=== PATIENT | female | born 1990 | race African-American/Black ===

== ENCOUNTER 2024-10-12 10:15 | Emergency (ER) | payer OTHER ==
[~2024-10-12] VITALS: Ht 154.9 cm; Wt 112.5 kg
[2024-10-12 10:32] VITALS: BP 129/82; TEMP 36.8; O2SAT 100
[2024-10-12 11:06] VITALS: PULSE 100; RESP 18; O2SAT 100
[2024-10-12 12:10] LABS: BASOPHILS % 0.7 % (0.0-2.0); DIFFERENTIAL COMMENT 0; EOSINOPHILS % 1.9 % (0.0-5.0); HEMATOCRIT. 33.1 % (36.0-48.0); HEMOGLOBIN. 10.3 g/dL (12.0-16.0); LYMPHOCYTES % 17.4 % (20.0-50.0); MEAN CORPUSCULAR HGB CONC 31.1 g/dL (31.0-37.0); MONOCYTES % 7.3 % (2.0-8.0); NEUTROPHILS % 72.7 % (40.0-76.0); PLATELET 517 x1000/uL (130-400); RED BLOOD CELL COUNT 4.66 mill/uL (4.2-5.4); RED CELL DISTRIBUTION WIDTH 19.6 % (11.6-14.6); WHITE BLOOD COUNT 8.9 x1000/uL (4.5-11.0)
[2024-10-12 12:21] LABS: CHLORIDE 107 mEq/L (98-107); POTASSIUM 3.9 mEq/L (3.5-5.1); SODIUM 138 mEq/L (136-145)
[2024-10-12 12:22] LABS: CALCIUM 9.4 mg/dL (8.7-10.4); CARBON DIOXIDE 24 mEq/L (21-32)
[2024-10-12 12:27] LABS: CREATININE 0.7 mg/dL (0.6-1.0); GLUCOSE 88 mg/dL (70-105); UREA NITROGEN BLOOD 6 mg/dL (9-23)
[2024-10-12] MEDS: FAMOTIDINE 20MG TABLET PO ONE (13:00)
[2024-10-12 13:37] LABS: B-HCG QUANTITATIVE 13359 mIU/mL (<6)
== END 2024-10-12 14:09 | disposition home or self-care (01) ==
LOC: ER 10:15
DX: O46.91 Antepartum hemorrhage, unspecified, first trimester (principal); O26.891 Other specified pregnancy related conditions, first trimester; K21.9 Gastro-esophageal reflux disease without esophagitis; O99.611 Diseases of the digestive system complicating pregnancy, first trimester; Z90.89 Acquired absence of other organs; Z3A.01 Less than 8 weeks gestation of pregnancy
CPT/HCPCS: 36415; 76801; 80048; 84702; 85025; 86850; 86900; 99284

== ENCOUNTER 2024-10-16 11:26 | Emergency (ER) | payer OTHER ==
[~2024-10-16] VITALS: Ht 154.9 cm; Wt 113.0 kg
[2024-10-16 11:33] VITALS: BP 124/85; PULSE 83; RESP 18; O2SAT 100
[2024-10-16 12:08] LABS: BASOPHILS % 0.7 % (0.0-2.0); DIFFERENTIAL COMMENT 0; EOSINOPHILS % 1.9 % (0.0-5.0); HEMATOCRIT. 32.3 % (36.0-48.0); HEMOGLOBIN. 10.1 g/dL (12.0-16.0); LYMPHOCYTES % 16.2 % (20.0-50.0); MEAN CORPUSCULAR HEMOGLOBIN 22.2 pg (28.0-32.0); MEAN CORPUSCULAR HGB CONC 31.3 g/dL (31.0-37.0); MEAN CORPUSCULAR VOLUME 70.8 fL (81.0-99.0); MEAN PLATELET VOLUME 7.3 fl (7.4-10.4); MONOCYTES % 6.1 % (2.0-8.0); NEUTROPHILS % 75.1 % (40.0-76.0); PLATELET 445 x1000/uL (130-400); RED BLOOD CELL COUNT 4.56 mill/uL (4.2-5.4); RED CELL DISTRIBUTION WIDTH 20.6 % (11.6-14.6); WHITE BLOOD COUNT 9.5 x1000/uL (4.5-11.0)
[2024-10-16 12:20] LABS: CHLORIDE 105 mEq/L (98-107); POTASSIUM 3.6 mEq/L (3.5-5.1); SODIUM 136 mEq/L (136-145)
[2024-10-16 12:21] LABS: CARBON DIOXIDE 24 mEq/L (21-32)
[2024-10-16 12:22] LABS: CALCIUM 9.2 mg/dL (8.7-10.4)
[2024-10-16 12:23] LABS: HCG SCREEN POSITIVE
[2024-10-16 12:26] LABS: CREATININE 0.8 mg/dL (0.6-1.0); GLUCOSE 101 mg/dL (70-105)
[2024-10-16 12:27] LABS: UREA NITROGEN BLOOD 6 mg/dL (9-23)
== END 2024-10-16 13:41 | disposition left against medical advice (07) ==
LOC: ER 11:26
DX: O03.4 Incomplete spontaneous abortion without complication (principal); N93.9 Abnormal uterine and vaginal bleeding, unspecified; Z90.89 Acquired absence of other organs; Z98.890 Other specified postprocedural states
CPT/HCPCS: 36415; 76856; 80048; 84703; 85025; 86850; 86900; 99284

== ENCOUNTER 2025-04-02 22:32 | Emergency (ER) | payer OTHER ==
[~2025-04-02] VITALS: Ht 154.9 cm; Wt 111.3 kg
[2025-04-02 22:57] VITALS: O2SAT 100
[2025-04-02 23:04] VITALS: TEMP 37
[2025-04-03] MEDS: ACETAMINOPHEN 500MG TABLET PO ONE (00:07)
[2025-04-03 00:52] LABS: HEMATOCRIT. 34.7 % (36.0-48.0); HEMOGLOBIN. 11.1 g/dL (12.0-16.0); RED BLOOD CELL COUNT 4.36 mill/uL (4.2-5.4); RED CELL DISTRIBUTION WIDTH 19.6 % (11.6-14.6)
[2025-04-03 01:02] LABS: CREATININE 0.7 mg/dL (0.6-1.0); UREA NITROGEN BLOOD 6 mg/dL (9-23)
[2025-04-03 01:03] LABS: ASPARTATE AMINOTRANSFERASE 17 IU/L (<34)
[2025-04-03 01:04] LABS: BILIRUBIN DIRECT 0.1 mg/dL (<=3.0); BILIRUBIN TOTAL 0.3 mg/dL (0.1-1.0); PROTEIN TOTAL 7.0 g/dL (6.0-8.3)
[2025-04-03 01:15] LABS: B-HCG QUANTITATIVE 8745 mIU/mL (<6)
[2025-04-03 01:53] LABS: EOSINOPHILS % MANUAL 3.0 % (0.0-5.0); LYMPHOCYTES % MANUAL 29.0 % (20.0-60.0); MONOCYTES % MANUAL 12.0 % (2.0-8.0); NEUTROPHILS % MANUAL 56.0 % (45.0-75.0); PLATELET ESTIMATE NORMAL
[2025-04-03 01:55] LABS: MEAN PLATELET VOLUME 7.7 fl (7.4-10.4); PLATELET 331 x1000/uL (130-400)
[2025-04-03] MEDS: POTASSIUM CHLORIDE 20MEQ TABLET SR PO ONE (02:29)
[2025-04-03 02:32] VITALS: BP 123/69; PULSE 77; RESP 14; O2SAT 99
== END 2025-04-03 03:52 | disposition left against medical advice (07) ==
LOC: ER 22:32
DX: O20.9 Hemorrhage in early pregnancy, unspecified (principal); R10.2 Pelvic and perineal pain; Z90.89 Acquired absence of other organs; Z3A.01 Less than 8 weeks gestation of pregnancy
CPT/HCPCS: 36415; 76801; 80048; 80076; 81025; 84702; 85025; 99284

== ENCOUNTER 2025-04-09 09:27 | Emergency (ER) | payer OTHER ==
[~2025-04-09] VITALS: Ht 154.9 cm; Wt 113.0 kg
[2025-04-09 09:33] VITALS: O2SAT 100
[2025-04-09 10:34] LABS: BASOPHILS % 0.8 % (0.0-2.0); EOSINOPHILS % 2.6 % (0.0-5.0); HEMATOCRIT. 38.7 % (36.0-48.0); HEMOGLOBIN. 12.5 g/dL (12.0-16.0); LYMPHOCYTES % 25.0 % (20.0-50.0); MEAN PLATELET VOLUME 7.7 fl (7.4-10.4); MONOCYTES % 7.9 % (2.0-8.0); NEUTROPHILS % 63.7 % (40.0-76.0); PLATELET 353 x1000/uL (130-400); RED BLOOD CELL COUNT 4.78 mill/uL (4.2-5.4); RED CELL DISTRIBUTION WIDTH 19.3 % (11.6-14.6)
[2025-04-09 10:43] LABS: CREATININE 0.8 mg/dL (0.6-1.0); UREA NITROGEN BLOOD < 5 mg/dL (9-23)
[2025-04-09 10:58] LABS: B-HCG QUANTITATIVE 13055 mIU/mL (<6)
[2025-04-09 12:19] VITALS: BP 120/71; PULSE 76; RESP 18; TEMP 37.3; O2SAT 100
[2025-04-09 12:45] LABS: CLARITY URINE CLEAR (CLEAR); COLOR URINE YELLOW (YELLOW); GLUCOSE URINE NEGATIVE (NEGATIVE); KETONES URINE TRACE (NEGATIVE); LEUKOCYTE ESTERASE URINE NEGATIVE (NEGATIVE); NITRITE URINE NEGATIVE (NEGATIVE); OCCULT BLOOD URINE 1+ (NEGATIVE); PH URINE 8.5 (4.5-8.0); PROTEIN URINE NEGATIVE (NEGATIVE); SPECIFIC GRAVITY URINE 1.009 (1.005-1.030); UROBILINOGEN URINE 0.2 E.U./dL (0.2-1.0)
[2025-04-09 13:17] LABS: BACTERIA URINE NONE SEEN; RBC URINE 0-2 /hpf (0-2); SQUAMOUS EPITHELIAL CELL URINE 1+ /lpf (RARE/1+); WBC URINE 0-2 /hpf (0-2); YEAST URINE NONE SEEN
== END 2025-04-09 12:44 | disposition home or self-care (01) ==
LOC: ER 09:27
DX: O20.0 Threatened abortion (principal); Z90.89 Acquired absence of other organs; Z3A.01 Less than 8 weeks gestation of pregnancy
CPT/HCPCS: 80048; 81003; 81025; 84702; 85025; 86850; 86900; 86901; 36415; 76801; 76817; 93005; 99284; Z7610